=== PATIENT | female | born 1980 | race Caucasian/White ===

== ENCOUNTER 2016-08-07 20:09 | Emergency (ER) | payer MEDICAID ==
--- NOTE | ~2016-08-07 | ER ---
PATIENT'S NAME: JOANN PRESSLEY [facility] AGE: 36 Y [address] ROOM: [place] [id number] LOCATION: ED ADMIT DATE: 08/07/2016 ER/Outpatient Report DISCHARGE DATE: 08/07/2016 FAMILY PHYSICIAN: PHYSICIAN, NO ATTENDING PHYSICIAN: Sajan Teran Time of Arrival: 2009 hours. Time of Evaluation: 2015 hours. CHIEF COMPLAINT: Anxiety, depression, and needing meds refill. HISTORY OF PRESENT ILLNESS: This is a 36-year-old female who presents to the ER. She states she has been having troubles with her anxiety and depression lately. She states she lost her insurance and has been unable to fill her prescriptions for the past couple of months. She states that she was seen over at [facility] today and spent approximately 3 hours over there, and they told her that they could not refill her medications because she could not get in to see the psychiatrist. She states that [facility] but that is not until this next week. She does not feel like she can wait that along. She denies any suicidal ideations. She states that she is having a lot of stress lately. She denies any other problems at this time. ALLERGIES: NO KNOWN ALLERGIES. MEDICATIONS: Please see medication list, nurse's notes. PAST MEDICAL HISTORY: 1. Migraines. 2. Cervical stenosis in her neck with disk bulging. 3. Asthma. 4. PTSD. 5. Depression. 6. Anxiety. PAST SURGERIES: Tubal ligation, cholecystectomy, tonsillectomy, and a bile scope. SOCIAL HISTORY: Smokes 1 pack of cigarettes a day. Denies any drug or alcohol use. REVIEW OF SYSTEMS: PATIENT'S NAME: JOANN PRESSLEY [facility] AGE: 36 Y [address] ROOM: [place], [place] [address] LOCATION: ED ADMIT DATE: 08/07/2016 ER/Outpatient Report DISCHARGE DATE: 08/07/2016 FAMILY PHYSICIAN: PHYSICIAN, NO ATTENDING PHYSICIAN: Sajan Teran A 10-point review of systems was completed and was negative with the exception of those discussed in the HPI. PHYSICAL EXAMINATION: VITAL SIGNS: Height 5 feet 9 inches stated, weight 82.4 kg taken. Blood pressure is 137/87, pulse 90, respirations 16, temperature 98 degrees tympanically, and saturations 100% on room air. [place] Coma Score is 15. GENERAL: Alert, very tearful, anxious female, in no acute distress. HEENT: Head, normocephalic. Eyes, pupils are equal and reactive to light. She does display moist mucous membranes. LUNGS: Clear to auscultation bilaterally. No wheezes or crackles. Normal respiratory effort. HEART: Regular rate and rhythm. No lifts, thrills, or murmurs. EXTREMITIES: No clubbing, cyanosis, or edema. Has full range of motion of all limbs. LABORATORY DATA AND X-RAYS: None were done. IMPRESSION: Anxiety and depression. ASSESSMENT AND PLAN: The patient reiterated the fact that she had already been evaluated by Johan Napoles today and she does not feel suicidal, so I am going to refill her Cymbalta, her Topamax, her Remeron, and her Xanax to use as directed. I did speak with the pharmacy to readjust the medication amount so that she can afford those prescriptions to get her by until she can be seen by her primary care physician. The patient and the patient's understand and agree with care. KRISTEN RESTREPO PA-C FOR MD RAMIRO KNIGHT/wayne /[id number] d: t: 08/08/16 0959, OUTPATIENT REPORT
--- NOTE | ~2016-08-07 | ER ---
PATIENT'S NAME: JOANN PRESSLEY [facility] AGE: 36 Y [address] ROOM: [place] [id number] LOCATION: ED ADMIT DATE: 08/07/2016 ER/Outpatient Report DISCHARGE DATE: 08/07/2016 FAMILY PHYSICIAN: PHYSICIAN, NO ATTENDING PHYSICIAN: Sajan Teran Time of Arrival: 2009 hours. Time of Evaluation: 2015 hours. CHIEF COMPLAINT: Anxiety, depression, and needing meds refill. HISTORY OF PRESENT ILLNESS: This is a 36-year-old female who presents to the ER. She states she has been having troubles with her anxiety and depression lately. She states she lost her insurance and has been unable to fill her prescriptions for the past couple of months. She states that she was seen over at [facility] today and spent approximately 3 hours over there, and they told her that they could not refill her medications because she could not get in to see the psychiatrist. She states that [facility] but that is not until this next week. She does not feel like she can wait that along. She denies any suicidal ideations. She states that she is having a lot of stress lately. She denies any other problems at this time. ALLERGIES: NO KNOWN ALLERGIES. MEDICATIONS: Please see medication list, nurse's notes. PAST MEDICAL HISTORY: 1. Migraines. 2. Cervical stenosis in her neck with disk bulging. 3. Asthma. 4. PTSD. 5. Depression. 6. Anxiety. PAST SURGERIES: Tubal ligation, cholecystectomy, tonsillectomy, and a bile scope. SOCIAL HISTORY: Smokes 1 pack of cigarettes a day. Denies any drug or alcohol use. REVIEW OF SYSTEMS: PATIENT'S NAME: JOANN PRESSLEY [facility] AGE: 36 Y [address] ROOM: [place], [place] [address] LOCATION: ED ADMIT DATE: 08/07/2016 ER/Outpatient Report DISCHARGE DATE: 08/07/2016 FAMILY PHYSICIAN: PHYSICIAN, NO ATTENDING PHYSICIAN: Sajan Teran A 10-point review of systems was completed and was negative with the exception of those discussed in the HPI. PHYSICAL EXAMINATION: VITAL SIGNS: Height 5 feet 9 inches stated, weight 82.4 kg taken. Blood pressure is 137/87, pulse 90, respirations 16, temperature 98 degrees tympanically, and saturations 100% on room air. [place] Coma Score is 15. GENERAL: Alert, very tearful, anxious female, in no acute distress. HEENT: Head, normocephalic. Eyes, pupils are equal and reactive to light. She does display moist mucous membranes. LUNGS: Clear to auscultation bilaterally. No wheezes or crackles. Normal respiratory effort. HEART: Regular rate and rhythm. No lifts, thrills, or murmurs. EXTREMITIES: No clubbing, cyanosis, or edema. Has full range of motion of all limbs. LABORATORY DATA AND X-RAYS: None were done. IMPRESSION: Anxiety and depression. ASSESSMENT AND PLAN: The patient reiterated the fact that she had already been evaluated by Johan Napoles today and she does not feel suicidal, so I am going to refill her Cymbalta, her Topamax, her Remeron, and her Xanax to use as directed. I did speak with the pharmacy to readjust the medication amount so that she can afford those prescriptions to get her by until she can be seen by her primary care physician. The patient and the patient's understand and agree with care. KRISTEN RESTREPO PA-C FOR MD RAMIRO KNIGHT/wayne /[id number] d: t: 08/10/16 1810, OUTPATIENT REPORT
== END 2016-08-07 20:56 | disposition disaster alternative care site (69) ==
LOC: GMED 20:09
DX: F41.9 Anxiety disorder, unspecified (principal); F32.9 Major depressive disorder, single episode, unspecified; G43.909 Migraine, unspecified, not intractable, without status migrainosus; J45.909 Unspecified asthma, uncomplicated; F43.10 Post-traumatic stress disorder, unspecified; F17.210 Nicotine dependence, cigarettes, uncomplicated; Z98.51 Tubal ligation status; Z90.49 Acquired absence of other specified parts of digestive tract; Z90.89 Acquired absence of other organs; Z79.899 Other long term (current) drug therapy